=== PATIENT | female | born 1955 | race Caucasian/White ===

== ENCOUNTER → 2016-10-01 | Day surgery (SDC) | payer OTHER ==
[~2016-10-01] VITALS: Ht 167.6 cm; Wt 76.5 kg
[2016-10-01] VITALS (12 sets, daily range): BP systolic 147–178; BP diastolic 80–98; PULSE 71–107; RESP 16–24; Ht 167.6 cm; Wt 76.5 kg
[~2016-10-01] MED LIST: ACETAMINOPHEN 1000 MG/100 ML IVPB ONE; BENA40TA41 PO; CEFAZOLIN 1 GM INJ ONE; DEXAMETHASONE 4 MG/ML 1 ML INJ ONE; DIPHENHYDRAMINE 50 MG INJ IV PRN; EPHEDrine SULFATE 50 MG/5 ML SYG IV PRN; FENTAnyl 50 MCG/ML VIAL ONE; HYDROmorphONE (0.2 MG/ML) 10ML SYG IV PRN; LABETALOL HCL 20MG INJ IV PRN; LIDOCAINE 1% (STERILE-PAK) 30 ML INJ ONE; LIDOCAINE 2% (SDV) 5 ML INJ ONE; LIDOCAINE 2%/EPI 30 ML INJ ONE; MEPERIDINE 25 MG INJ IV PRN; METOCLOPRAMIDE 10 MG INJ ONE; METOPROLOL 5 MG INJ ONE; MIDAZOLAM 1 MG/ML 2 ML INJ ONE; ONDANSETRON 4 MG INJ IV PRN; ONDANSETRON 4 MG INJ ONE; PHENYLephrine (100 MCG/ML) 5ML SYG ONE; POLYMYXIN/BACITRACIN 1L IRRIG ONE; PROCHLORPERAZINE 10 MG INJ IV PRN; PROPOFOL 20 ML ONE; ROPIVACAINE 0.5 % 30 ML VIAL ONE; hydrALAzine 20 MG INJ IV PRN; hydrALAzine 20 MG INJ ONE; oxyCODONE 5 MG TAB PO PRN
[2016-10-01 16:23] LABS: BASOPHIL # 0.1 10^3/ul (0.0-0.1); BASOPHILS % 0.8 % (0.0-2.0); EOSINOPHILS # 0.1 10^3/ul (0.0-0.5); EOSINOPHILS % 1.2 % (0.0-7.0); HEMATOCRIT 42.3 % (37.0-47.0); LYMPHOCYTES # 2.4 10^3/ul (0.8-2.9); MEAN CORPUSCULAR HEMOGLOBIN 29.4 pg (29.0-33.0); MEAN CORPUSCULAR HGB CONC 33.1 g/dl (32.0-37.0); MEAN CORPUSCULAR VOLUME 88.9 fl (82.0-101.0); MEAN PLATELET VOLUME 9.7 fl (7.4-10.4); MONOCYTE # 0.4 10^3/ul (0.3-0.9); MONOCYTES % 5.3 % (0.0-11.0); NEUTROPHILS % 56.5 % (39.0-77.0); PLATELET COUNT 272 10^3/UL (140-415); RED BLOOD COUNT 4.76 10^6/ul (4.20-5.40); RED CELL DISTRIBUTION WIDTH 12.9 % (11.5-14.5); WHITE BLOOD COUNT 6.6 10^3/ul (4.8-10.8)
--- NOTE | 2016-10-01 16:41 | RADRPT ---
PROCEDURE: XR Chest. CLINICAL INDICATION: Preoperative. Distal radius fracture. TECHNIQUE: Single frontal view. COMPARISON: 10/31/2013. FINDINGS: The lungs are clear. The heart size is normal. There is no pleural effusion. There is no pneumothorax. IMPRESSION: 1. Normal chest radiograph. 2. No change from 10/31/2013. RPTAT: QQ .Erlin Fuentes MD, MD Date Time Electronically viewed and signed by .Erlin Fuentes MD, MD on 10/01/2016 16:41 .R/
[2016-10-01 16:45] LABS: ADD UMIC YES; UR ASCORBIC ACID 40 mg/dL (NEGATIVE); UR BILIRUBIN (Dip) NEGATIVE (NEGATIVE); UR BLOOD (Dip) NEGATIVE (NEGATIVE); UR CLARITY SLIGHTLY CLOUDY (CLEAR); UR COLOR YELLOW (YELLOW); UR GLUCOSE (Dip) NEGATIVE (NEGATIVE); UR KETONES (Dip) NEGATIVE (NEGATIVE); UR LEUKOCYTE ESTERASE (Dip) 3+ Leu/ul (NEGATIVE); UR MUCUS FEW /HPF (NONE SEEN); UR NITRITE (Dip) NEGATIVE (NEGATIVE); UR RBC 2 /HPF (0-5); UR SPECIFIC GRAVITY (Dip) 1.018 (1.003-1.030); UR SQUAMOUS EPITHELIAL CELL FEW /HPF (FEW); UR TOTAL PROTEIN (Dip) NEGATIVE (NEGATIVE); UR UROBILINOGEN (Dip) NEGATIVE (NEGATIVE)
--- NOTE | 2016-10-01 18:34 | HPN ---
Date/Time of Note Date/Time of Note DATE: 10/01/16 TIME: 18:33 Interval H&P Admission Note Pt. seen H&P reviewed: No system changes MARIO HINDS MD Oct 01, 2016 18:34
--- NOTE | 2016-10-01 18:37 | SIPON ---
Date/Time of Note Date/Time of Note DATE: 10/01/16 TIME: 18:36 Operative Report Preoperative Diagnosis distal radius fracture Postoperative Diagnosis same Operation/Procedure Performed orif Surgeon: MARIO HINDS MD Anesthesia Type: general Estimated Blood Loss: 0 - 10 ml's Transfusion Required: no Specimen: none Grafts/Implants: none Complications: no MARIO HINDS MD Oct 01, 2016 18:37
[2016-10-01] MEDS: FENTAnyl 50 MCG/ML VIAL IV PRN ×2 (21:06→21:16)
--- NOTE | 2016-10-02 00:48 | OPR ---
DATE OF OPERATION: 10/01/2016 SURGEON: Clovis Healy MD MATERIALS MANAGEMENT MANAGER SURGEON: Staff. ANESTHESIOLOGIST: Arron Jaquez MD ANESTHESIA: 1. General anesthetic by the anesthesiologist. 2. Supraclavicular block by the anesthesiologist. 3. Local anesthetic by the surgeon. PREOPERATIVE DIAGNOSIS: Distal radius fracture, comminuted, intra-articular, shortened, displaced, and angulated (AO classification C3). POSTOPERATIVE DIAGNOSIS: Distal radius fracture, comminuted, intra-articular, shortened, displaced, and angulated (AO classification C3). PROCEDURE: Open reduction and internal fixation comminuted, shortened, angulated, displaced distal radius fracture, right. ESTIMATED BLOOD LOSS: Less than 15 mL. TOURNIQUET TIME: 83 minutes and the procedure was a little longer. SURGICAL PAUSE: I examined the patient in the preoperative holding area, confirmed the operative procedure and plan, marked the dressing (she was in a plastic cast from the Emergency Room). We noted the patient, confirmed the operative procedure and plan with the patient awake. INFORMED CONSENT: At the time we scheduled the operative procedure, we discussed with the patient the risks and hazards of surgery, mentioning operative mortality, wound infection, nerve injury, good results, bad results, potential complications. Special concerns at this procedure would be injury suffered to radial nerve, metal irritation, intra-articular screws, persistent angulation, further collapse. At the end of that conversation, we had the patient sign a note meant to document and that, in fact, was a conversation, not every detail thereof. DESCRIPTION OF PROCEDURE: The patient taken to surgery and anesthetized as described above. A sterile prep and drape was performed. The hand was exsanguinated with elevation and compression. A pneumatic tourniquet was inflated at 250 mmHg. A standard flexor carpi radialis approach to the volar radius was performed. The pronator quadratus was divided and reflected. The brachial radialis was released. Eschar was debrided. The fracture was manipulated, with great difficulty, into a reduced position and fixed with a volar plate. Vocational Childcare Teacher of the plate is [employer]. Three large screws in length, 7 small pegs in width. The large 3.5 mm screws are locking. The distal threaded pegs are locking. At the end of fixation, I took x-rays documenting an improvement in length, inclination and alignment. The intraoperative mini c arm x-rays were unclear as to the risk of intra-articular pegs. I ranged the wrist trying to feel any evidence of peg impingement. I could not feel any evidence of pegs impinging. I took multiple x-rays to determine if there was any metal in the joint and as best I can see, there is no metal in the joint. The distal radial joint appeared stable. The distal radiocarpal joint appeared to be out to length inclination and tilt and as far as I can tell, no metal is in the joint. Special x-ray views were obtained. The wound was closed in layers with Vicryl deep and Vicryl subcuticular. Steri-Strips were used. Bulky splint and dressing was applied. The patient is awake, stable in the recovery room. DISCHARGE MEDICATIONS: Hydrocodone with acetaminophen and Keflex. POSTOPERATIVE PLAN: Followup will be in my office in a week. We will keep her in fiberglass splint a total of 3-4 weeks because of her soft osteopenic bone. Dictated By: Clovis Healy MD /julian/mitesh /Document#: [id number] RITIKA
--- NOTE | 2016-10-02 10:45 | RADRPT ---
PROCEDURE: Intraoperative imaging of the right wrist with fluoroscopy. CLINICAL INDICATION: Right wrist pain. Intraoperative. TECHNIQUE: 17 images of the right wrist were obtained in the operating room with an image intensif ier. No radiologist was in attendance. Fluoroscopy time is 39 seconds. COMPARISON: No prior study is available for comparison. FINDINGS: Images demonstrate open reduction and internal fixation of the distal radius with a plate and multip le screws. IMPRESSION: 1. Intraoperative imaging of the right wrist. RPTAT: QQ .Erlin Fuentes MD, MD Date Time Electronically viewed and signed by .Erlin Fuentes MD, on 10/02/2016 10:44 .R/
--- NOTE | 2016-10-05 17:06 | RADRPT ---
Vent Rate: 72 bpm RR Interval: 0 msec [place] Interval: 178 msec QRS Duration: 84 msec QT Interval: 426 msec QTC Interval: 466 msec P-R-T [place]: 61 - 6 - 51 degrees Normal sinus rhythm Normal ECG Electronically Signed By: Akash John [id number]
== END | disposition home or self-care (01) ==
LOC: SDS 15:02
PROVIDERS: ATTEND Orthopaedic Surgery Hand Surgery
DX: S52.571A Other intraarticular fracture of lower end of right radius, initial encounter for closed fracture (principal); K21.9 Gastro-esophageal reflux disease without esophagitis; I10 Essential (primary) hypertension; W19.XXXA Unspecified fall, initial encounter; Y93.9 Activity, unspecified; Y99.9 Unspecified external cause status; Y92.9 Unspecified place or not applicable
CPT/HCPCS: 25608; 71010; 73110; 81001; 85025; 93005; C1713; J0131; J0360; J0690; J1100; J2250; J2370; J2405; J2765; J2795; J3010; Z7512; Z7610